=== PATIENT | male | born 1945 | race African-American/Black ===

== ENCOUNTER 2017-03-25 13:55 | Emergency (ER) | payer OTHER ==
[~2017-03-25] VITALS: Ht 172.7 cm; Wt 95.0 kg
[~2017-03-25 13:55] MED LIST: HYDR50TA94 PO; PREV30CA11 PO
[2017-03-25 13:57] VITALS: BP 137/92; PULSE 84; RESP 16; TEMP 97.7; O2SAT 99
[2017-03-25] MEDS ORDERED: ASPI81CH7 CHEW (14:10)
--- NOTE | 2017-03-25 14:12 | PD ---
HPI . right ear fb Chief Complaint: Foreign Body Time Seen by Provider: 14:12 Travel History International Travel<30 days: No Contact w/Intl Traveler<30days: No Traveled to known affect area: No History of Present Illness HPI 71 yr old male with hx of CVA and left sided hemiparesis here with c/o right ear fb. He says he was using a q tip yesterday and the tip disappeared into his right ear. He has some difficulty hearing. He denies any pain or discomfort. He has no other issues. PFSH Past Medical History Hx Anticoagulant Therapy: Yes Cerebrovascular Accident: Yes Diminished Hearing: No Social History Alcohol Use: No Tobacco Use: No Substance Use: No Allergies-Medications (Allergen,Severity, Reaction): Coded Allergies: No Known Allergies (Verified , 05/16/15) Reported Meds & Prescriptions Reported Meds & Active Scripts Active Prevacid (Lansoprazole) 30 Mg Capdr 30 Mg PO HS Reported Aspirin Children's (Aspirin) 81 Mg Chew 81 Mg CHEW DAILY Review of Systems General / Constitutional: No: Fever Eyes: No: Visual changes HENT: Positive: Other (fb right ear), No: Headaches Cardiovascular: No: Chest Pain or Discomfort Respiratory: No: Shortness of Breath Gastrointestinal: No: Abdominal Pain Genitourinary: No: Dysuria Musculoskeletal: No: Pain Skin: No Rash Neurologic: No: Weakness Psychiatric: No: Depression Endocrine: No: Polydipsia Hematologic/Lymphatic: No: Easy Bruising Physical Exam Narrative GENERAL: AAO x 3, no acute distress, Well-nourished, well-developed patient. SKIN: Warm and dry. No visible rashes or bruising. HEAD: Normocephalic and atraumatic. EYES: No scleral icterus. No injection or drainage. EOM intact, PERRLA ENT: No nasal drainage noted. Airway patent. Right TM with cotton tip and side. Left TM normal. Cotton tip removed and TMs are normal bilaterally. NECK: Supple, trachea midline. No JVD. CARDIOVASCULAR: Regular rate and rhythm without murmurs, gallops, or rubs. RESPIRATORY: Breath sounds equal bilaterally. No accessory muscle use. No rhonchi or rales. GASTROINTESTINAL: Visual inspection is normal EXTREMITIES: No cyanosis or edema. BACK: Nontender without obvious deformity. No CVA tenderness. PSYCH: AAO x 3, normal affect. Data Data Last Documented VS Vital Signs Date Time Temp Pulse Resp B/P Pulse Ox O2 Delivery O2 Flow Rate FiO2 03/25/17 13:57 97.7 84 16 137/92 99 MDM Medical Decision Making Medical Screen Exam Complete: Yes Emergency Medical Condition: Yes Medical Record Reviewed: Yes Differential Diagnosis right ear fb, OM, OE Narrative Course 71 yr old male with hx of CVA and left sided hemiparesis here with c/o right ear fb. He says he was using a q tip yesterday and the tip disappeared into his right ear. He has some difficulty hearing. He denies any pain or discomfort. He has no other issues. Patient seen and examined. He does have a cotton tip stuck into the right ear canal. Alligator forceps were used to remove the cotton tip. Patient tolerated without incident Advised not to use Q-tips. Patient verbalized understanding of instructions, questions were answered, and thanked me for their care. I advised them if their condition worsens, please return to the nearest emergency room for further care. Procedures Procedure Narrative Cotton tip removal Alligator forceps used to grasp and remove cotton tip. Patient tolerated without incident. Diagnosis Primary Impression: Foreign body in right ear Qualified Code: T16.1XXA - Foreign body in right ear, initial encounter Additional Instructions: Try not to use any q tips. Disposition: 01 DISCHARGE HOME Condition: Stable Rufina Vizcarra Mar 25, 2017 14:12
== END 2017-03-25 15:13 | disposition home or self-care (01) ==
LOC: NEPK 13:55
DX: T16.1XXA Foreign body in right ear, initial encounter (principal); I69.359 Hemiplegia and hemiparesis following cerebral infarction affecting unspecified side; Z79.01 Long term (current) use of anticoagulants; Z86.79 Personal history of other diseases of the circulatory system; X58.XXXA Exposure to other specified factors, initial encounter; Y93.E8 Activity, other personal hygiene
CPT/HCPCS: 69200